=== PATIENT | male | born 1960 | race Caucasian/White ===

== ENCOUNTER 2017-02-01 10:12 | Emergency (ER) | payer OTHER ==
[~2017-02-01] VITALS: Ht 177.8 cm; Wt 99.2 kg
[~2017-02-01 10:12] MED LIST: IBUPROFEN 200200 MG PO
[2017-02-01 10:13] VITALS: BP 159/79; PULSE 59; TEMP 98.2
[2017-02-01] MEDS ORDERED: NORCO 325 MG-51 TAB PO (10:32)
== END 2017-02-01 10:42 | disposition home or self-care (01) ==
LOC: COL.ER 10:12
DX: G89.29 Other chronic pain (principal); M25.562 Pain in left knee; M25.561 Pain in right knee

== ENCOUNTER 2017-04-24 00:15 | Emergency (ER) | payer OTHER ==
[~2017-04-24] VITALS: Ht 177.8 cm; Wt 96.8 kg
[~2017-04-24 00:15] MED LIST changes: +NORCO 325 MG-51 TAB PO
[2017-04-24 00:18] VITALS: BP 120/70; TEMP 97.5
[2017-04-24] MEDS ORDERED: NORCO 325 MG-101 TAB PO (00:22)
[2017-04-24 01:22] LABS: BASO # 0.1 (0.0-0.2); BASO % 0.7 % (0.0-2.0); EOS # 0.2 (0.0-0.7); EOS % 2.6 % (0-4.0); GRAN # 3.8 (1.4-6.5); GRAN % 55.3 % (42.2-75.2); HEMATOCRIT 38.6 % (42.0-52.0); HEMOGLOBIN 13.6 g/dl (13.5-18.0); LYMPH # 2.1 (1.2-3.4); LYMPH % 31.3 % (20.0-51.0); MEAN CELL VOLUME 92 fl (80.0-100.0); MEAN CORPUSCULAR HEMOGLOBIN 32 pg (27.0-31.0); MEAN CORPUSCULAR HGB CONC 35 g/dl (33.0-37.0); MEAN PLATELET VOLUME 10.1 fl (7.4-10.4); MONO # 0.7 (0.1-0.6); MONO % 9.7 % (1.7-9.3); PLATELET COUNT 284 K/mm3 (130-400); RED BLOOD COUNT 4.22 M/mm3 (4.20-5.60); REDCELL DISTRIBUTION WIDTH-CV 12.2 % (11.5-14.5); WHITE BLOOD COUNT 6.8 K/mm3 (4.8-10.8)
[2017-04-24 01:42] LABS: ADJUSTED CALCIUM 9.2 mg/dL (8.4-10.2); ALBUMIN 4.2 gm/dL (3.5-5.0); C-REACTIVE PROTEIN 2.4 mg/dL (0.0-0.9); CALCIUM 9.4 mg/dL (8.4-10.2); CREATININE, serum 0.67 mg/dL (0.66-1.25); POTASSIUM 3.4 mmol/L (3.4-5.0); TOTAL PROTEIN 7.5 gm/dL (6.4-8.2)
[2017-04-24 01:53] LABS: PH 5 (5-8); SQUAMOUS EPITHELIAL None Seen /hpf; URINE APPEARANCE Clear; URINE BACTERIA None Seen /hpf; URINE BILIRUBIN Negative (NEGATIVE); URINE BLOOD 3+ (NEGATIVE); URINE COLOR Yellow; URINE GLUCOSE Negative (NEGATIVE); URINE KETONE Negative (NEGATIVE); URINE WBC 0-2 /hpf
[2017-04-24 03:13] VITALS: PULSE 72
== END 2017-04-24 03:13 | disposition home or self-care (01) ==
LOC: COL.ER 00:15
PROVIDERS: Nurse Practitioner
DX: R10.12 Left upper quadrant pain (principal); G89.29 Other chronic pain; M25.569 Pain in unspecified knee; F17.210 Nicotine dependence, cigarettes, uncomplicated; Z98.890 Other specified postprocedural states
CPT/HCPCS: J1170; J7030; Q9967

== ENCOUNTER 2017-07-08 19:33 | Emergency (ER) | payer OTHER ==
[~2017-07-08] VITALS: Ht 177.8 cm; Wt 99.0 kg
[~2017-07-08 19:33] MED LIST changes: +NORCO 325 MG-101 TAB PO
[2017-07-08 19:49] VITALS: BP 166/66; TEMP 98.6
[2017-07-08] MEDS ORDERED: CEPHALEXIN500 M1 PO (20:13)
[2017-07-08 20:17] VITALS: PULSE 82
== END 2017-07-08 20:21 | disposition home or self-care (01) ==
LOC: COL.ER 19:33
DX: H60.12 Cellulitis of left external ear (principal); Z96.21 Cochlear implant status

== ENCOUNTER 2017-07-13 20:12 | Emergency (ER) | payer OTHER ==
[~2017-07-13] VITALS: Ht 177.8 cm; Wt 99.0 kg
[~2017-07-13 20:12] MED LIST changes: +CEPHALEXIN500 M1 PO
[2017-07-13 20:23] VITALS: BP 141/82; TEMP 97.5
[2017-07-13 22:07] LABS: BASO # 0.1 (0.0-0.2); BASO % 0.7 % (0.0-2.0); EOS # 0.2 (0.0-0.7); EOS % 1.9 % (0-4.0); GRAN # 5.9 (1.4-6.5); GRAN % 59.2 % (42.2-75.2); HEMATOCRIT 40.2 % (42.0-52.0); HEMOGLOBIN 14.2 g/dl (13.5-18.0); LYMPH # 2.7 (1.2-3.4); LYMPH % 27.3 % (20.0-51.0); MEAN CELL VOLUME 92 fl (80.0-100.0); MEAN CORPUSCULAR HEMOGLOBIN 33 pg (27.0-31.0); MEAN CORPUSCULAR HGB CONC 35 g/dl (33.0-37.0); MEAN PLATELET VOLUME 9.9 fl (7.4-10.4); MONO % 9.8 % (1.7-9.3); PLATELET COUNT 292 K/mm3 (130-400); RED BLOOD COUNT 4.37 M/mm3 (4.20-5.60)
[2017-07-13 22:32] LABS: ERYTHROCYTE SEDIMENTATION RATE 13 mm/hr (0-30)
[2017-07-13 23:57] VITALS: PULSE 63
== END 2017-07-13 23:57 | disposition home or self-care (01) ==
LOC: COL.ER 20:12
PROVIDERS: Nurse Practitioner
DX: T81.4XXA Infection following a procedure, initial encounter (principal); Z87.891 Personal history of nicotine dependence; Z96.21 Cochlear implant status

== ENCOUNTER → 2017-07-14 | Outpatient (CLI) | payer OTHER | LOC: ZCOL.LAB 14:38 | DX: Z01.89 Encounter for other specified special examinations (principal) ==

== ENCOUNTER 2017-09-02 16:31 | Emergency (ER) | payer OTHER ==
[~2017-09-02] VITALS: Ht 177.8 cm; Wt 99.5 kg
[2017-09-02 16:41] VITALS: BP 134/70; PULSE 70; TEMP 98.6
[2017-09-02] MEDS ORDERED: CEPHALEXIN500 M1 PO (20:51)
== END 2017-09-02 18:30 | disposition left against medical advice (07) ==
LOC: COL.ER 16:31
DX: T85.9XXA Unspecified complication of internal prosthetic device, implant and graft, initial encounter (principal); Z53.21 Procedure and treatment not carried out due to patient leaving prior to being seen by health care provider

== ENCOUNTER 2017-09-02 19:47 | Emergency (ER) | payer OTHER ==
[~2017-09-02] VITALS: Ht 177.8 cm; Wt 99.5 kg
[2017-09-02 19:52] VITALS: BP 122/73; TEMP 98.6
[2017-09-02] MEDS ORDERED: CEPHALEXIN500 M1 PO (20:51)
[2017-09-02 21:04] VITALS: PULSE 88
== END 2017-09-02 21:08 | disposition home or self-care (01) ==
LOC: COL.ER 19:47
DX: L03.90 Cellulitis, unspecified (principal); F17.210 Nicotine dependence, cigarettes, uncomplicated; Z98.890 Other specified postprocedural states

== ENCOUNTER 2018-03-27 17:50 | Emergency (ER) | payer OTHER ==
[~2018-03-27] VITALS: Ht 177.8 cm; Wt 108.6 kg
[2018-03-27 17:51] VITALS: BP 160/88; TEMP 98.8
[2018-03-27 18:35] LABS: BASO # 0.1 (0.0-0.2); BASO % 0.8 % (0.0-2.0); EOS # 0.2 (0.0-0.7); EOS % 2.9 % (0-4.0); GRAN # 4.3 (1.4-6.5); GRAN % 58.5 % (42.2-75.2); HEMATOCRIT 38.1 % (42.0-52.0); HEMOGLOBIN 13.2 g/dl (13.5-18.0); LYMPH # 2.2 (1.2-3.4); LYMPH % 29.3 % (20.0-51.0); MEAN CELL VOLUME 91 fl (80.0-100.0); MEAN CORPUSCULAR HEMOGLOBIN 31 pg (27.0-31.0); MEAN CORPUSCULAR HGB CONC 35 g/dl (33.0-37.0); MEAN PLATELET VOLUME 9.6 fl (7.4-10.4); MONO # 0.6 (0.1-0.6); PLATELET COUNT 264 K/mm3 (130-400); REDCELL DISTRIBUTION WIDTH-CV 12.9 % (11.5-14.5)
[2018-03-27] MEDS ORDERED: CALCIUM 600MG+D1 TAB PO (18:37)
[2018-03-27] MEDS ORDERED: CEPHALEXIN500 M1 PO (18:37)
[2018-03-27] MEDS ORDERED: ASPIRIN 81M81 MG/TA2 PO (18:37)
[2018-03-27] MEDS ORDERED: ZOCOR 20MG20 MG PO (18:39)
[2018-03-27] MEDS ORDERED: MOBIC 7.5MG7.5 MG PO ×2 (18:40→20:53)
[2018-03-27] MEDS ORDERED: EPA FISH OIL1 SGL PO (18:41)
[2018-03-27] MEDS ORDERED: PRED FORTE 1 ML1 ML (18:41)
[2018-03-27] MEDS ORDERED: EPA FISH OIL1000 MG PO (18:41)
[2018-03-27] MEDS ORDERED: NORCO 325 MG-7.1 TAB PO (18:42)
[2018-03-27 18:53] LABS: ERYTHROCYTE SEDIMENTATION RATE 14 mm/hr (0-30)
[2018-03-27 21:07] VITALS: PULSE 88
== END 2018-03-27 21:09 | disposition home or self-care (01) ==
LOC: COL.ER 17:50
PROVIDERS: Nurse Practitioner
DX: G89.29 Other chronic pain (principal); M25.572 Pain in left ankle and joints of left foot; Z87.891 Personal history of nicotine dependence; Z79.82 Long term (current) use of aspirin